=== PATIENT | male | born 1990 | race Caucasian/White ===

== ENCOUNTER 2018-04-01 21:04 | Emergency (ER) | payer SELFPAY ==
[~2018-04-01] VITALS: Ht 167.6 cm; Wt 77.1 kg
[2018-04-01 21:13] VITALS: Ht 167.6 cm; Wt 77.1 kg
[2018-04-01 23:07] VITALS: BP 136/87
== END 2018-04-01 23:07 | disposition home or self-care (01) ==
LOC: ED 21:04
PROC: 2W3EX1Z Immobilization of Right Hand using Splint (ICD-10-PCS; principal; 2018-04-01)
DX: S62.396A Other fracture of fifth metacarpal bone, right hand, initial encounter for closed fracture (principal); W22.01XA Walked into wall, initial encounter; Y92.9 Unspecified place or not applicable